=== PATIENT | female | born 1950 | race Two or more races ===

== ENCOUNTER 2024-01-20 00:24 | Emergency (ER) | payer OTHER ==
[~2024-01-20] VITALS: Ht 157.5 cm; Wt 90.7 kg
[2024-01-20] MEDS ORDERED: SYNTHROID75 MCG PO (00:27)
[2024-01-20] MEDS ORDERED: EZALLOR SPRINKL10 MG PO (00:27)
[2024-01-20] MEDS ORDERED: HYOSCYAMINE SULFATE 0.125 MG TAB.SUBL SL STA (01:34)
[2024-01-20] MEDS ORDERED: FAMOTIDINE/PF 20 MG/2 ML VIAL IV PUSH STA (01:37)
[2024-01-20 02:42] LABS: HEMATOCRIT 39.6 % (36.0-45.00); HEMOGLOBIN 13.4 g/dL (12.0-15.00); MEAN CORPUSCULAR HEMOGLOBIN 30.1 pg (27.00-32.0); MEAN CORPUSCULAR HGB CONC 33.9 g/dl (32.0-36.0); PLATELET COUNT 229 K/uL (150-450); RED BLOOD COUNT 4.45 M/uL (4.00-6.00); RED CELL DISTRIBUTION WIDTH 15.5 % (11.5-14.5)
[2024-01-20 02:56] LABS: CALCIUM 9.4 mg/dL (8.5-10.1); CREATININE SERUM 0.8 mg/dL (0.55-1.02); GFR 70.31; POTASSIUM 3.73 mEq/L (3.5-5.1)
[2024-01-20] MEDS ORDERED: MINERAL OIL 30 ML BLIST.PACK PO ONE (03:30)
[2024-01-20] MEDS ORDERED: LACTULOSE 10 G/15 ML ML PO ONE (03:30)
[2024-01-20] MEDS ORDERED: MAGNESIUM HYDROXIDE 400 MG/5 ML ML PO ONE (03:30)
== END 2024-01-20 03:35 | disposition home or self-care (01) ==
LOC: ER 00:24
DX: K59.01 Slow transit constipation (principal); K29.70 Gastritis, unspecified, without bleeding; Z88.8 Allergy status to other drugs, medicaments and biological substances
CPT/HCPCS: 36415; 74019; 93005; 96365; 99284; J3490